=== PATIENT | female | born 1965 | race Caucasian/White ===

== ENCOUNTER → 2025-01-08 | Outpatient (CLI) | payer MEDICAID ==
[~2025-01-08] MED LIST: CALC-1042 PO; CHOL100022 PO; MULT-622 PO
== END | disposition home or self-care (01) ==
LOC: RAD 08:09
PROVIDERS: ATTEND Surgery Surgical Oncology
DX: N60.92 Unspecified benign mammary dysplasia of left breast (principal); Z79.899 Other long term (current) drug therapy; Z98.890 Other specified postprocedural states
CPT/HCPCS: 19281; 19282; A4648; Z7610

== ENCOUNTER → 2025-01-10 | Day surgery (SDC) | payer MEDICAID ==
[~2025-01-10] VITALS: Ht 162.6 cm; Wt 89.4 kg
[~2025-01-10] MED LIST changes: +ACETAMINOPHEN 1,000MG/100ML PREMIX IV PRN; +BUPIVACAINE HCL/PF 0.5% (5MG/ML) 10ML ONE; +CEFAZOLIN SODIUM 1000MG/VIAL ONE; +FAMOTIDINE 20MG/2ML VIAL IV ONE; +FAMOTIDINE 20MG/2ML VIAL IV PRN; +FENTANYL CITRATE/PF 50MCG/ML 2ML VIAL ONE; +HYDRALAZINE 20MG/ML VIAL IV PRN; +HYDROMORPHONE HCL/PF 1MG/ML INJ IV PRN; +LABETALOL 5MG/ML 4ML INJ IV PRN; +LIDOCAINE HCL/EPINEPHRINE 1%-EPI 1:100,000 20ML VIAL ONE; +MEPERIDINE HCL/PF 25MG/ML CPJ IV PRN; +MIDAZOLAM HCL 2 MG/2 ML VIAL ONE; +ONDANSETRON HCL 4MG/2ML INJ IV PRN; +ONDANSETRON HCL 4MG/2ML INJ ONE; +PROPOFOL 200MG/20ML VIAL IV ONE; +ROCURONIUM BROMIDE 10MG/ML VIAL 5ML IV ONE; +SODIUM CHLORIDE 0.9% 1,000 ML IV SCH
== END | disposition home or self-care (01) ==
LOC: OR 07:03
PROVIDERS: ATTEND Surgery Surgical Oncology
DX: N60.92 Unspecified benign mammary dysplasia of left breast (principal); M19.90 Unspecified osteoarthritis, unspecified site; Z79.899 Other long term (current) drug therapy; Z98.890 Other specified postprocedural states
CPT/HCPCS: 19125; 82962; 88305; 76098; J3010; J0665; J0690; J1308; J2004; J2250; J2405; J2704; J3490